=== PATIENT | male | born 1970 | race Caucasian/White ===

== ENCOUNTER → 2016-12-02 | Outpatient (REF) ==
[~2016-12-02] MED LIST: ACTOS 45MG45 MG/TAB PO; BENADRYL50 MG PO; DOXYCYCLINE 10100 MG PO; FENTANYL 25 MCG TD; FENTANYL 75MCG TD; GLUCOPHAGE1000 MG PO; HCTZ12.5TAB; LEXAPRO 10MG10 MG PO; LIDODERM 5% PATC1 EA TP; LIORESAL 1010 MG/TAB PO; NORVASC 5MG5 MG/TAB PO; PERCOCET 500 MG1 TAB PO; PRINIVIL40 MG PO; ROBAXIN-750750 MG PO; ROXICODONE 55 MG/TAB PO; TOPROL XL 50MG50 MG PO; TOPROL XL100 MG PO; TRULICITY0.75 MG/0. SQ; XANAX .25M0.25 MG/TA PO; ZOFRAN 4MG T4 MG/TAB PO
== END ==
LOC: ZLAB.WCH 15:21
DX: Z01.89 Encounter for other specified special examinations (principal)

== ENCOUNTER → 2017-03-19 | Outpatient (REF) | LOC: ZLAB.WCH 12:42 | DX: Z01.89 Encounter for other specified special examinations (principal) ==

== ENCOUNTER → 2017-09-08 | Outpatient (REF) | LOC: ZLAB.WCH 18:06 | DX: Z01.89 Encounter for other specified special examinations (principal) ==